=== PATIENT | male | born 1950 | race Caucasian/White ===

== ENCOUNTER 2024-01-28 07:29 | Outpatient (CLI) | payer OTHER | END 2024-01-28 07:30 | disposition home or self-care (01) | LOC: NM 07:29 | PROVIDERS: ATTEND Urology | DX: Z12.2 Encounter for screening for malignant neoplasm of respiratory organs (principal); R97.20 Elevated prostate specific antigen [PSA]; N28.82 Megaloureter; N13.2 Hydronephrosis with renal and ureteral calculous obstruction; R91.8 Other nonspecific abnormal finding of lung field; R93.41 Abnormal radiologic findings on diagnostic imaging of renal pelvis, ureter, or bladder; R93.2 Abnormal findings on diagnostic imaging of liver and biliary tract; R93.7 Abnormal findings on diagnostic imaging of other parts of musculoskeletal system; Z72.0 Tobacco use | CPT/HCPCS: 71250; 74177; 78306; A9503 ==

== ENCOUNTER 2024-04-22 14:16 | Outpatient (CLI) | payer OTHER ==
[2024-04-22 16:14] LABS: ALT (SGPT) 10 U/L (8-55); AST (SGOT) 14 U/L (5-34); Albumin 3.4 g/dL (3.4-4.8); Alkaline Phosphatase 86 U/L (40-110); Bilirubin, Direct 0.1 mg/dL (0.1-0.3); Bilirubin, Total 0.3 mg/dL (0.2-1.2); Protein, Total 6.3 g/dL (5.8-8.1)
== END 2024-04-22 14:17 | disposition home or self-care (01) ==
LOC: LABBT 14:16
PROVIDERS: ATTEND Urology
DX: Z01.818 Encounter for other preprocedural examination (principal); N40.1 Benign prostatic hyperplasia with lower urinary tract symptoms; N52.9 Male erectile dysfunction, unspecified; N13.2 Hydronephrosis with renal and ureteral calculous obstruction; N28.9 Disorder of kidney and ureter, unspecified; N28.89 Other specified disorders of kidney and ureter; R91.1 Solitary pulmonary nodule; R97.20 Elevated prostate specific antigen [PSA]; Z98.890 Other specified postprocedural states; Z72.0 Tobacco use; Z86.19 Personal history of other infectious and parasitic diseases
CPT/HCPCS: 80048; 80076; 81001; 84153; 85027; 85610; 85730; 86850; 86900; 86901; 87086; 93005; 93010

== ENCOUNTER 2024-05-12 14:16 | Outpatient (CLI) | payer OTHER ==
[2024-05-12 16:19] LABS: Bilirubin Neg (Negative); Blood, Urine 25 (Negative); Clarity Clear (Clear); Glucose, Urine (Dipstick) Normal (Negative); Ketone, Urine Negative (Negative); Leukocyte 25 (Negative); Nitrite Negative (Negative); Protein, Urine (Dipstick) 500 mg/dl (Neg-Trace); Urobilinogen Normal mg/dL (Less than 2)
[2024-05-12 16:26] LABS: Hematocrit 40.4 % (38.8-50.0); Hemoglobin 13.8 g/dL (13.5-17.5); Mean Corpuscular HGB CONC 34.2 g/dL (32.0-36.0); Mean Corpuscular Hemoglobin 31.1 pg (27.0-33.0); Mean Platelet Volume 10.4 fL (7.4-10.4); Platelet Count 306 10x3/uL (150-450); RBC Distribution Width 13.3 % (11.5-14.5); Red Blood Cell (RBC) Count 4.44 10x6/uL (4.32-5.72); White Blood Cell (WBC) Count 11.2 10x3/uL (3.5-10.5)
[2024-05-12 16:34] LABS: Bacteria/HPF 1+ HPF (None Seen); Squamous Epithelial 0-3 HPF (0-3); Transitional Epithelial 0-3 HPF (None Seen)
[2024-05-12 16:40] LABS: PTT 29.3 sec (22.0-33.0); Prothrombin Time 11.1 sec (9.5-12.1)
[2024-05-12 16:53] LABS: Anion Gap 16 mmol/L (10-20); BUN (Urea Nitrogen) 39 mg/dL (8.4-25.7); Calc. Creatinine Clearance 0 mL/min (70-130); Calcium 9.3 mg/dL (7.8-10.44); Carbon Dioxide 26 mmol/L (23-31); Chloride 101 mmol/L (98-107); Estimated GFR 32; Glucose 87 mg/dL (83-110); Potassium 4.9 mmol/L (3.5-5.1); Sodium 138 mmol/L (136-145)
== END 2024-05-12 14:17 | disposition home or self-care (01) ==
LOC: LABBT 14:16
PROVIDERS: ATTEND Urology
DX: Z01.818 Encounter for other preprocedural examination (principal); N40.1 Benign prostatic hyperplasia with lower urinary tract symptoms; N52.9 Male erectile dysfunction, unspecified; N28.89 Other specified disorders of kidney and ureter; N13.30 Unspecified hydronephrosis; N20.0 Calculus of kidney; R91.1 Solitary pulmonary nodule; R97.20 Elevated prostate specific antigen [PSA]; Z86.19 Personal history of other infectious and parasitic diseases; Z98.890 Other specified postprocedural states; Z72.0 Tobacco use
CPT/HCPCS: 71046; 80048; 81001; 85027; 85610; 85730; 87086; 93005; 93010

== ENCOUNTER 2024-05-26 06:07 | Day surgery (SDC) | payer OTHER ==
[2024-05-12 14:55] VITALS: BMI 27.2
[2024-05-26] MEDS ORDERED: Lidocaine 1% MPF 2 ML VIAL ONE (06:19)
[2024-05-26] MEDS ORDERED: LevoFLOXacin D5W 500 mg (100 mL) BAG ONE (06:19)
[2024-05-26] MEDS ORDERED: Sodium Chloride 0.9% 100 ML ONE (06:20)
[2024-05-26] MEDS ORDERED: cefTRIAXone (ROCEPHIN) 2 GM VIAL ONE (06:20)
[2024-05-26] MEDS ORDERED: Lidocaine 2% PF 5 ML VIAL ONE (07:02)
[2024-05-26] MEDS ORDERED: PROPOFOL 40 ML ONE (07:02)
[2024-05-26] MEDS ORDERED: fentaNYL PF 100 MCG/2 ML SYRINGE ONE (07:02)
[2024-05-26] MEDS ORDERED: PROPOFOL 20 ML ONE (07:04)
[2024-05-26] MEDS ORDERED: Ondansetron PF 4 MG/2 ML Vial ONE (07:40)
[2024-05-26] MEDS ORDERED: ePHEDrine Sulfate 50 MG/10 ML VIAL ONE (07:53)
== END 2024-05-26 11:19 | disposition home or self-care (01) ==
LOC: SDC 06:07
PROVIDERS: ATTEND Urology
PROC: 0VB07ZX Excision of Prostate, Via Natural or Artificial Opening, Diagnostic (ICD-10-PCS; principal; 2024-05-26)
DX: N40.1 Benign prostatic hyperplasia with lower urinary tract symptoms (principal); R97.20 Elevated prostate specific antigen [PSA]; C68.9 Malignant neoplasm of urinary organ, unspecified; J44.9 Chronic obstructive pulmonary disease, unspecified; F32.A Depression, unspecified; R91.1 Solitary pulmonary nodule; F17.210 Nicotine dependence, cigarettes, uncomplicated; N28.9 Disorder of kidney and ureter, unspecified; N13.30 Unspecified hydronephrosis; N20.0 Calculus of kidney; Z98.890 Other specified postprocedural states
CPT/HCPCS: G0416; J0696; J1956; J2001; J2405; J2704; J3490

== ENCOUNTER 2024-11-04 13:56 | Outpatient (CLI) | payer OTHER | END 2024-11-04 13:57 | disposition home or self-care (01) | LOC: BICCT 13:56 | PROVIDERS: ATTEND Urology | DX: C68.9 Malignant neoplasm of urinary organ, unspecified (principal); N28.9 Disorder of kidney and ureter, unspecified; N13.30 Unspecified hydronephrosis; R91.8 Other nonspecific abnormal finding of lung field; K76.9 Liver disease, unspecified | CPT/HCPCS: 74176 ==

== ENCOUNTER 2025-01-07 14:47 | Outpatient (CLI) | payer OTHER | END 2025-01-07 14:48 | disposition home or self-care (01) | LOC: BICCT 14:47 | PROVIDERS: ATTEND Urology | DX: R91.8 Other nonspecific abnormal finding of lung field (principal); N13.30 Unspecified hydronephrosis; N28.89 Other specified disorders of kidney and ureter; J98.4 Other disorders of lung; I25.10 Atherosclerotic heart disease of native coronary artery without angina pectoris; M47.814 Spondylosis without myelopathy or radiculopathy, thoracic region; M85.89 Other specified disorders of bone density and structure, multiple sites; M43.8X4 Other specified deforming dorsopathies, thoracic region; M43.8X6 Other specified deforming dorsopathies, lumbar region | CPT/HCPCS: 71250 ==